=== PATIENT | male | born 1975 | race Caucasian/White ===

== ENCOUNTER → 2017-07-15 | Outpatient (CLI) | payer BC ==
--- NOTE | 2017-07-16 07:14 | XR ---
EXAMINATION TYPE: XR shoulder complete RT DATE OF EXAM: 07/15/2017 CLINICAL HISTORY: Increasing right shoulder pain TECHNIQUE: Three views of the right shoulder are obtained. COMPARISON: None FINDINGS: There is no acute fracture/dislocation evident in the right shoulder. The glenohumeral vito int space appears within normal limits. There is mild acromioclavicular arthropathy demonstrated as m arginal osteophytes and capsular hypertrophy. The visualized ribs are intact and unremarkable. IMPRESSION: There is no acute fracture or dislocation in the right shoulder. Mild acromioclavicular arthropathy. If there is continued pain MR could be performed to evaluate the rotator cuff.
== END | disposition home or self-care (01) ==
LOC: RADXRYALE 16:32
PROVIDERS: ATTEND Physician Assistant Medical
DX: M12.811 Other specific arthropathies, not elsewhere classified, right shoulder (principal)

== ENCOUNTER → 2021-04-04 | Outpatient (CLI) | payer BC ==
--- NOTE | 2021-04-04 16:22 | XR ---
EXAMINATION TYPE: XR thoracic spine complete DATE OF EXAM: 04/04/2021 COMPARISON: None HISTORY: Cervicalgia, thoracic pain TECHNIQUE: 3 view thoracic spine FINDINGS: There are 12 thoracic type vertebral bodies. Pedicles are intact. Disc heights are preserve d. Vertebral body heights are preserved. There is mild scoliosis with convexity to the right. This ca n be positional. IMPRESSION: 1. No acute osseous abnormality. Some mild scoliosis may be positional.
--- NOTE | 2021-04-04 16:25 | XR ---
EXAMINATION TYPE: XR cervical spine comp DATE OF EXAM: 04/04/2021 COMPARISON: None HISTORY: Pain in the cervical region TECHNIQUE: 5 view cervical spine FINDINGS: Some foraminal narrowing C5-6 on the left is present. Mild C5-6 right foraminal narrowing i s present. The prevertebral space is normal. Subtle disc space narrowing is present C3-4 and C5-6. Po sterior spinal lamellar line is intact. Incisors overlie the tip of the odontoid. IMPRESSION: 1. Mild bilateral foraminal narrowing C5-6. 2. Degenerative disc space narrowing C5-6 and C3-4.
== END | disposition home or self-care (01) ==
LOC: RADXRYALE 14:59
PROVIDERS: ATTEND Family Medicine
DX: M50.322 Other cervical disc degeneration at C5-C6 level (principal); M54.6 Pain in thoracic spine; R20.2 Paresthesia of skin
CPT/HCPCS: 72050; 72072

== ENCOUNTER → 2025-01-01 | Outpatient (CLI) | payer BC ==
--- NOTE | 2025-01-03 15:43 | MR ---
EXAMINATION TYPE: MR knee LT wo con DATE OF EXAM: 01/01/2025 8:46 PM COMPARISON: None. CLINICAL INDICATION: Male, 49 years old with history of M25.562, Left knee pain around kneecap x 3 mo nths IV Contrast: cc (None if empty) TECHNIQUE: Multiplanar, multisequence imaging of the left knee is performed without IV contrast. FINDINGS: There is a small joint effusion. There is no bone contusion or fracture. There is mild fissuring and chondromalacia of the patellar cartilage and mild subchondral changes, co nsistent with mild osteoarthritis. There is mild thinning and chondromalacia of the articular cartila ge of the medial compartment and mild subchondral changes in the medial condyle indicating mild to mo derate osteoarthritis. There is a complex tear of the posterior horn of the medial meniscus. The late ral meniscus is intact. The cruciate and collateral ligaments are intact. There are ganglion cysts of the medial gastrocnemius tendon near its insertion. The quadriceps and patellar tendon are normal. There is mild increased signal intensity in the anteri or suprapatellar fat-pad indicating mild suprapatellar fat pad friction. IMPRESSION: 1. Mild osteoarthritic changes patellofemoral compartment and mild to moderate osteoarthritic change of the medial compartment. 2. Complex tear of the posterior horn of the medial meniscus image 3. Small joint effusion. 4. No ligamentous injury [facility], , 01/03/2025 3:41 PM
== END | disposition home or self-care (01) ==
LOC: RADMRIMAIN 20:15
PROVIDERS: ATTEND Orthopaedic Surgery
DX: M17.12 Unilateral primary osteoarthritis, left knee (principal); M23.222 Derangement of posterior horn of medial meniscus due to old tear or injury, left knee; M25.462 Effusion, left knee